=== PATIENT | male | born 1960 | race Caucasian/White ===

== ENCOUNTER 2019-05-19 08:00 | Outpatient (CLI) | payer OTHER | END 2019-05-19 23:59 | disposition home or self-care (01) | LOC: LAB.N 08:00 | PROVIDERS: ATTEND Urology | DX: N40.2 Nodular prostate without lower urinary tract symptoms (principal) | CPT/HCPCS: 36415; 84153 ==

== ENCOUNTER 2021-08-20 10:05 | Outpatient (CLI) | payer OTHER | END 2021-08-20 10:06 | disposition home or self-care (01) | LOC: LAB.N 10:05 | PROVIDERS: ATTEND Urology | DX: Z12.5 Encounter for screening for malignant neoplasm of prostate (principal) | CPT/HCPCS: 36415; 84153 ==

== ENCOUNTER 2022-09-08 11:44 | Outpatient (CLI) | payer OTHER | END 2022-09-08 11:45 | disposition home or self-care (01) | LOC: LAB.N 11:44 | PROVIDERS: ATTEND Urology | DX: Z12.5 Encounter for screening for malignant neoplasm of prostate (principal) | CPT/HCPCS: 36415; 84153 ==